=== PATIENT | male | born 1930 | race Caucasian/White ===

== ENCOUNTER → 2017-04-17 | Outpatient (CLI) | payer MEDICARE, OTHER ==
[~2017-04-17] MED LIST: AMOX-559 PO; ASPI-1471 PO; ATEN-76 PO; ATOR20TA22 PO; ATOR20TA65 PO; ATR10 PO; AZIT-1 PO; AZIT-17 PO; CA C1TAB85 PO; CHOL10005 PO; COL625PT PO; COLE3.756 PO; COLE625T15 PO; DIPH-1 PO; ESOM40SU2 PO; EZE10 PO; FLUT16SP19 NS; GUAI120L3 PEG; GUAI120L3 PO; HCTZ25 PO; HYDR12.558 PO; HYDR12.561 PO; LOPE1LIQ49 PO; MULT-772 PO; MULT1CAP41 PO; OFF COUMADIN; OMEP-125 PO; OMEP-137 PO; OMEP-218 PO; ROBC PO; TAM4 PO; TAMS0.4C70 PO; TOBOD OD; TRIA15OI20 TP; VERA180T53 PO; VITE400 PO; WAR5 PO; WARF-1 PO; WARF2.5T62 PO; [UNRECOGNIZED DRUG - CODE] PO; [UNRECOGNIZED DRUG - CODE] PO
[2017-04-17 08:29] LABS: PLATELET COUNT, AUTOMATED 185 K/uL (150-450)
== END ==
LOC: LAB 08:09
PROVIDERS: ATTEND Internal Medicine
DX: Z12.5 Encounter for screening for malignant neoplasm of prostate (principal); R79.9 Abnormal finding of blood chemistry, unspecified; E78.5 Hyperlipidemia, unspecified; N18.3 Chronic kidney disease, stage 3 (moderate)
CPT/HCPCS: 36415; 84443; 85025; G0103; 82040; 82247; 82310; 82374; 82435; 82465; 82565; 82947; 83718; 84075; 84132; 84153; 84155; 84295; 84450; 84460; 84478; 84520

== ENCOUNTER → 2017-05-03 | Outpatient (CLI) | payer MEDICARE, OTHER | LOC: LAB 08:08 | DX: R97.20 Elevated prostate specific antigen [PSA] (principal) | CPT/HCPCS: 36415; 84153 ==

== ENCOUNTER 2017-05-15 17:04 | Emergency (ER) | payer MEDICARE, OTHER ==
--- NOTE | 2017-05-15 17:41 | ER Report ---
History and Physical Time Seen By MD: 17:28 Hx. of Stated Complaint: chest pain, very light headed HPI/ROS Chief concern: left shoulder pain and lightheadedness HPI: 86 y/o male presents with concern for left shoulder pain and lightheadedness occurring 2-3 hours earlier today. Reports history of [place] in 1995 , triple bypass 1993, and intermittent angina for an unknown number of years. Denies any chest pain. Denies radiation of pain. Denies shortness of breath, dyspnea, or shoulder trauma/injury. Reports increased fatigue x3days. Reports heartburn managed with prilosec; denies recent exacerbations. Review of Systems: HENT: Denies sore throat, acid reflux. Respiratory: Reports cough. Denies shortness of breath, dyspnea CV: Denies chest pain, radiating pain to left arm. Denies palpitations. GI: Denies hematochezia, melena. Allergies: Coded Allergies: amlodipine (Verified Allergy, Severe, ITCHING, 06/23/15) cefaclor (Verified Allergy, Severe, ITCHING, 06/23/15) Calcium Channel Blocking-Diarylamin (Unverified Allergy, Intermediate, UNK , 06/23/15) Opioids - Morphine Analogues (Unverified Allergy, Intermediate, UNK, ) ciprofloxacin (Verified Allergy, Mild, MILD ACHINESS, 06/23/15) tramadol (Verified Allergy, Mild, DYSURIA, 06/23/15) Home Meds Active Scripts Fluticasone Prop 50 Mcg Ns (FLONASE 50 MCG NS) 16 Gm [place].susp, 2 SPRAYS NS QDAY, #1 BOT 9 Refills Prov:PRADEEP PEREZ MD 04/20/17 Hydrochlorothiazide (HYDROCHLOROTHIAZIDE) 12.5 Mg Tablet, 1 TAB PO QODAY, #45 TAB 4 Refills Prov:PRADEEP PEREZ MD 04/20/17 Tamsulosin Hcl (TAMSULOSIN HCL) 0.4 Mg Cap.er.24h, 0.4 MG PO BID, #180 TAB 4 Refills Prov:PRADEEP PEREZ MD 04/20/17 Colesevelam Hcl (WELCHOL) 625 Mg Tablet, 2 TAB PO TID, #540 TAB 4 Refills Prov:PRADEEP PEREZ MD 04/20/17 Verapamil Hcl (VERAPAMIL ER) 180 Mg Tablet.er, 1 TAB PO DAILY, #90 TAB 4 Refills Prov:PRADEEP PEREZ MD 04/20/17 Atorvastatin Calcium (ATORVASTATIN CALCIUM) 20 Mg Tablet, 1 TAB PO QDAY, #90 TAB 4 Refills TAKE ONE TABLET BY MOUTH ONCE A DAY AT BED TIME Prov:PRADEEP PEREZ MD 04/20/17 Diphenoxylate Hcl/Atropine (LOMOTIL TABLET) 1 Each Tablet, 2 TAB PO QHS Y for DIARRHEA, #60 TAB 5 Refills Prov:PRADEEP PEREZ MD 04/20/17 Aspirin (ASPIR 81) 81 Mg Tablet., 81 MG PO QDAY, #30 TAB Prov:PRADEEP PEREZ MD 04/07/16 Reported Medications Omeprazole Magnesium (PRILOSEC OTC) 20 Mg Tablet.dr, 1 TAB PO QODAY, TAB 04/01/15 Bismuth Subsalicylate (KAOPECTATE) 262 Mg/15 Ml Oral.susp, 262 MG PO QDAY Y for diarhea 04/01/15 Multivitamin W-Minerals/Lutein (CENTRUM SILVER ULTRA MEN'S TAB) 1 Each Tablet, 1 EACH PO DAILY 07/09/14 Past Medical/Surgical History Triple CABG 1993; heart attack 1995; history of pulmonary embolism; skin cancer on forehead 2004. hypertension; hypercholesterolemia; diverticulosis; GERD; cholelithiasis; arthritis; Reviewed Nurses Notes: Yes Hx Smoking: Yes (SMOKED 3/4 PPD FOR 6 OR 7 YEARS) Smoking Status: Former Smoker Exposure to Second Hand Smoke?: No Hx Substance Use Disorder: No Hx Alcohol Use: No Constitutional Vital Sign - Last 24 Hours 05/15/17 05/15/17 05/15/17 05/15/17 17:04 17:10 17:11 17:19 Temp 97.8 Pulse ??? 76 82 Resp 14 25 B/P (MAP) 157/82 157/82 (107) Pulse Ox 94 97 O2 Delivery Room Air 05/15/17 05/15/17 17:34 17:46 Pulse 79 75 Resp 27 Pulse Ox 95 Physical Exam Physical Exam: General: Alert, oriented x3, in no acute distress HENT: PERRLA, TMs pearly bo, intact, no erythema to canals. Posterior pharynx pink. No lymphadenopathy. Respiratory: Clear to auscultation bilaterally. Normal respiratory effort. No wheezing, crackles, rhonchi, rales. CV: S1S2 without M/R/G. Regular rate and rhythm. No peripheral edema. Abdomen: Bowel sounds normoactive all quadrants. Scattered sounds of tympany and dullness to percussion. No masses or tenderness to palpation. MSK: No bony deformities, inflammation or tenderness in rotator cuff, biceps tendon, clavicle or AC joint. Full ROM bilateral upper extremities. After thorough HPI, ROS, and physical exam, the following differentials were considered: myocardial infarction, left shoulder pain, GERD, non-cardiac chest pain. Medical Decision Making Data Points Result Diagram: 05/15/17 1730 05/15/17 1730 Laboratory Hematology Test 05/15/17 17:30 05/15/17 19:38 Red Blood Count 4.70 M/uL (4.00-5.60) Mean Corpuscular Volume 95.0 fL (80.0-96.0) Mean Corpuscular Hemoglobin 31.9 pg (26.0-33.0) Mean Corpuscular Hemoglobin Concent 33.6 g/dL (32.0-36.0) Red Cell Distribution Width 13.8 % (11.5-14.5) Mean Platelet Volume 8.5 fL (7.2-11.1) Neutrophils (%) (Auto) 59.9 % (39.4-72.5) Lymphocytes (%) (Auto) 22.5 % (17.6-49.6) Monocytes (%) (Auto) 13.4 % (4.1-12.4) Eosinophils (%) (Auto) 3.5 % (0.4-6.7) Basophils (%) (Auto) 0.7 % (0.3-1.4) Nucleated RBC Relative Count (auto) 0.1 /100WBC Neutrophils # (Auto) 3.7 K/uL (2.0-7.4) Lymphocytes # (Auto) 1.4 K/uL (1.3-3.6) Monocytes # (Auto) 0.8 K/uL (0.3-1.0) Eosinophils # (Auto) 0.2 K/uL (0.0-0.5) Basophils # (Auto) 0.0 K/uL (0.0-0.1) Nucleated RBC Absolute Count (auto) 0.00 K/uL Sodium Level 138 mmol/L (137-145) Potassium Level 4.2 mmol/L (3.5-5.0) Chloride Level 104 mmol/L (98-107) Carbon Dioxide Level 24 mmol/L (22-30) Blood Urea Nitrogen 19 mg/dl (9-21) Creatinine 1.20 mg/dl (0.66-1.25) Glomerular Filtration Rate Calc 57.4 Random Glucose 97 mg/dl (75-110) Calcium Level 9.1 mg/dl (8.4-10.2) Total Bilirubin 1.0 mg/dl (0.2-1.3) Aspartate Amino Transf (AST/SGOT) 25 U/L (0-35) Alanine Aminotransferase (ALT/SGPT) 31 U/L (0-56) Alkaline Phosphatase 92 U/L (0-126) Total Protein 7.2 gm/dl (6.3-8.2) Albumin 4.1 g/dl (3.5-5.0) Troponin I < 0.012 ng/ml Chemistry Test 05/15/17 17:30 05/15/17 19:38 White Blood Count 6.2 k/uL (4.5-11.0) Red Blood Count 4.70 M/uL (4.00-5.60) Hemoglobin 15.0 g/dL (14.0-18.0) Hematocrit 44.7 % (42.0-52.0) Mean Corpuscular Volume 95.0 fL (80.0-96.0) Mean Corpuscular Hemoglobin 31.9 pg (26.0-33.0) Mean Corpuscular Hemoglobin Concent 33.6 g/dL (32.0-36.0) Red Cell Distribution Width 13.8 % (11.5-14.5) Platelet Count 132 K/uL (150-450) Mean Platelet Volume 8.5 fL (7.2-11.1) Neutrophils (%) (Auto) 59.9 % (39.4-72.5) Lymphocytes (%) (Auto) 22.5 % (17.6-49.6) Monocytes (%) (Auto) 13.4 % (4.1-12.4) Eosinophils (%) (Auto) 3.5 % (0.4-6.7) Basophils (%) (Auto) 0.7 % (0.3-1.4) Nucleated RBC Relative Count (auto) 0.1 /100WBC Neutrophils # (Auto) 3.7 K/uL (2.0-7.4) Lymphocytes # (Auto) 1.4 K/uL (1.3-3.6) Monocytes # (Auto) 0.8 K/uL (0.3-1.0) Eosinophils # (Auto) 0.2 K/uL (0.0-0.5) Basophils # (Auto) 0.0 K/uL (0.0-0.1) Nucleated RBC Absolute Count (auto) 0.00 K/uL Glomerular Filtration Rate Calc 57.4 Calcium Level 9.1 mg/dl (8.4-10.2) Total Bilirubin 1.0 mg/dl (0.2-1.3) Aspartate Amino Transf (AST/SGOT) 25 U/L (0-35) Alanine Aminotransferase (ALT/SGPT) 31 U/L (0-56) Alkaline Phosphatase 92 U/L (0-126) Total Protein 7.2 gm/dl (6.3-8.2) Albumin 4.1 g/dl (3.5-5.0) Troponin I < 0.012 ng/ml EKG/Imaging EKG Interpretation 12 lead EKG: Rhythm: normal sinus rhythm with a ventricular rate of 78 bpm [place]: normal QRS: Right bundle branch block ST segments: normal Imaging CHEST PA AND LAT COMPARISONS: None. ADDITIONAL PERTINENT HISTORY: Chest pain FINDINGS: Cardiomediastinal silhouette: Patient status post median sternotomy. 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 Lung morillo: Interstitial scarring with hyperexpanded lung morillo bilaterally. Pleural spaces: Negative. Osseous structures: Spondylitic change involving the thoracic spine. Surrounding soft tissues: Patient status post cholecystectomy. IMPRESSION: 1. Hyperexpanded lung morillo with background interstitial scarring. 2. No evidence of acute cardiopulmonary disease. Report Dictated By: Gee Thomas MD at 05/15/2017 7:35 PM Report E-Signed By: Gee Thomas MD at 05/15/2017 7:37 PM ED Course/Re-evaluation ED Course Patient admitted to exam room. Thorough HPI, ROS obtained. Physical exam revealed no concerns, with lungs clear to auscultation, cardiac revealed regular rate and rhythm, and no abdominal tenderness to palpation. Differential diagnoses considered included: myocardial infarction, left shoulder pain, GERD, non-cardiac chest pain. Cardiac workup completed including CBC, CMP, CXR, and troponin. Troponin negative x2. CXR IMPRESSION: 1. Hyperexpanded lung morillo with background interstitial scarring. 2. No evidence of acute cardiopulmonary disease. Results discussed with patient. Recommend he continue normal activities, follow up with primary care provider within next week, and tube laser operator at next scheduled appointment. Patient verbalised understanding and agreed to plan. Decision to Disposition Date: May 15, 2017 Decision to Disposition Time: 20:16 Depart Departure Latest Vital Signs Vital Signs Date Time Temp Pulse Resp B/P (MAP) Pulse Ox O2 Delivery O2 Flow Rate FiO2 05/15/17 17:46 75 05/15/17 17:34 27 95 05/15/17 17:11 157/82 (107) 05/15/17 17:10 97.8 Room Air Impression: Primary Impression: Chest pain Condition: Improved Disposition: HOME OR SELF-CARE Referrals: PRADEEP PEREZ MD (PCP) Patient Instructions: Chest Pain (ED) Additional Instructions: You may continue with normal routine, exercises, and diet. Follow up with primary care within 1-2 weeks. Follow up with tube laser operator at next scheduled appointment. Return to ED if symptoms return. Problem Qualifiers Primary Impression: Chest pain Chest pain type: other chest pain Qualified Codes: R07.89 - Other chest pain BRIAN CROSS ANDRES May 15, 2017 17:41
[2017-05-15] MEDS ORDERED: ASPIRIN 81 MG CHEW PO ONE (17:45)
[2017-05-15] MEDS ORDERED: ASPIRIN 81 MG CHEW ONE (17:49)
--- NOTE | 2017-05-15 17:50 | EKG ---
FACILITY: [facility] PATIENT NAME: LEXIS SANCHEZ : [id number] MR: [id number] V: [id number] EXAM DATE: ORDERING PHYSICIAN: BRIAN CROSS TECHNOLOGIST: BRETT Test Reason : CARDIAC PROBLEM Blood Pressure : / mmHG Vent. Rate : 078 BPM Atrial Rate : 078 BPM P-R Int : 170 ms QRS Dur : 144 ms QT Int : 434 ms P-R-T Axes : 041 058 022 degrees QTc Int : 494 ms Sinus rhythm Right bundle branch block Abnormal ECG When compared with ECG of 23-JUN-2015 08:50, No significant change was found Confirmed by DELIA SCHMIDT ([id number]) on 05/16/2017 6:25:53 AM Referred By: Confirmed By:DELIA SCHMIDT
[2017-05-15 17:52] LABS: PLATELET COUNT, AUTOMATED 132 K/uL (150-450)
[2017-05-15 19:30] VITALS: BP 136/71
--- NOTE | 2017-05-15 19:41 | RADIOLOGY IMAGING REPORT ---
FACILITY: [facility] PATIENT NAME: Gerry Stein : 1930 MR: [id number] V: [id number] EXAM DATE: ORDERING PHYSICIAN: BRIAN CROSS TECHNOLOGIST: [facility] Patient: Gerry Steni : 1930 Visit/Account:[id number] Date of Sevice: 05/15/2017 CHEST PA AND LAT COMPARISONS: None. ADDITIONAL PERTINENT HISTORY: Chest pain FINDINGS: Cardiomediastinal silhouette: Patient status post median sternotomy. 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 Lung morillo: Interstitial scarring with hyperexpanded lung morillo bilaterally. Pleural spaces: Negative. Osseous structures: Spondylitic change involving the thoracic spine. Surrounding soft tissues: Patient status post cholecystectomy. IMPRESSION: 1. Hyperexpanded lung morillo with background interstitial scarring. 2. No evidence of acute cardiopulmonary disease. Report Dictated By: Gee Thomas MD at 05/15/2017 7:35 PM Report E-Signed By: Gee Thomas MD at 05/15/2017 7:37 PM WSN:[id number]
== END 2017-05-15 20:22 | disposition home or self-care (01) ==
LOC: ER 17:21
DX: R07.89 Other chest pain (principal)
CPT/HCPCS: 36415; 71046; 84484; 85025; 93005; 99284; A9270; 82040; 82247; 82310; 82374; 82435; 82565; 82947; 84075; 84132; 84155; 84295; 84450; 84460; 84520

== ENCOUNTER → 2017-05-23 | Outpatient (CLI) | payer MEDICARE, OTHER | LOC: LAB 07:56 | PROVIDERS: ATTEND Internal Medicine Cardiovascular Disease | DX: I25.119 Atherosclerotic heart disease of native coronary artery with unspecified angina pectoris (principal); I10 Essential (primary) hypertension; E78.00 Pure hypercholesterolemia, unspecified | CPT/HCPCS: 36415; 82310; 82374; 82435; 82465; 82565; 82947; 83718; 84132; 84295; 84478; 84520 ==

== ENCOUNTER → 2017-08-11 | Outpatient (CLI) | payer MEDICARE, OTHER | LOC: LAB 09:12 | DX: R97.20 Elevated prostate specific antigen [PSA] (principal) | CPT/HCPCS: 36415; 84153 ==

== ENCOUNTER → 2018-02-02 | Outpatient (CLI) | payer MEDICARE, OTHER | LOC: LAB 08:11 | DX: R97.20 Elevated prostate specific antigen [PSA] (principal) | CPT/HCPCS: 36415; 84153 ==

== ENCOUNTER → 2018-04-18 | Outpatient (CLI) | payer MEDICARE, OTHER ==
[2018-04-18 08:31] LABS: PLATELET COUNT, AUTOMATED 144 K/uL (150-450)
[2018-04-18 10:55] LABS: LDL CHOLESTEROL 34 mg/dl
== END ==
LOC: LAB 08:12
PROVIDERS: ATTEND Internal Medicine
DX: I10 Essential (primary) hypertension (principal); E78.00 Pure hypercholesterolemia, unspecified; I25.10 Atherosclerotic heart disease of native coronary artery without angina pectoris
CPT/HCPCS: 36415; 81001; 82040; 82247; 82310; 82374; 82435; 82465; 82565; 82947; 83718; 84075; 84132; 84155; 84295; 84443; 84450; 84460; 84478; 84520; 84550; 85025

== ENCOUNTER → 2018-06-05 | Outpatient (CLI) | payer MEDICARE, OTHER ==
[~2018-06-05] MED LIST changes: -VERA180T53 PO; +VERA180T57 PO
== END ==
LOC: LAB 08:13
PROVIDERS: ATTEND Internal Medicine Cardiovascular Disease
DX: E78.00 Pure hypercholesterolemia, unspecified (principal); I25.119 Atherosclerotic heart disease of native coronary artery with unspecified angina pectoris; I10 Essential (primary) hypertension; I70.1 Atherosclerosis of renal artery
CPT/HCPCS: 36415; 82310; 82374; 82435; 82565; 82947; 84132; 84295; 84520

== ENCOUNTER → 2018-06-22 | Outpatient (CLI) | payer MEDICARE, OTHER | LOC: LAB 09:11 | DX: R97.20 Elevated prostate specific antigen [PSA] (principal) | CPT/HCPCS: 36415; 84153 ==